=== PATIENT | male | born 1960 | race Caucasian/White ===

== ENCOUNTER 2019-04-07 09:08 | Emergency (ER) | payer SELFPAY ==
[2019-04-07] MEDS ORDERED: Ketorolac *IM* INJ* 60 MG/2 ML VIAL IM ONE (11:14)
[2019-04-07 11:44] VITALS: BP 120/77
--- NOTE | 2019-04-07 13:15 | ED ---
Back Pain - HPI Summary HPI Summary: This patient is a 58-year-old male who is currently residing at [facility] presenting to the ED with left lower back pain radiating into the buttocks and down the leg. Symptoms have been present 2 days. He states it is difficult to walk, however he remains ambulatory. He is rating the pain an 8/10. He denies any bladder or bowel dysfunction. Denies any pain currently over the spine. Denies any fevers, sweats, chills. - History of Current Complaint Chief Complaint: EDBackInjuryPain Stated Complaint: LOWER LT SIDE BACK PAIN PER PT Time Seen by Provider: 04/07/19 09:26 Hx Obtained From: Patient Onset/Duration: Sudden Onset Onset/Duration: Started Days Ago Timing: Constant Back Pain Location: Is Discrete @ - left lower back radiating to the L leg Severity Initially: Moderate Severity Currently: Moderate Pain Intensity: 6 Pain Scale Used: 0-10 Numeric Character: Aching Aggravating Symptom(s): Movement Alleviating Symptom(s): Rest, Position Associated Signs And Symptoms: Negative: Swelling, Redness, Bruising, Weakness, Numbness, Bladder Incontinence, Bowel Incontinence - Risk Factors AAA Risk Factors: Negative TAD Risk Factors: Negative Cauda Equina Risk Factors: Negative Epidural Abscess Risk Factors: Negative - Allergies/Home Medications Allergies/Adverse Reactions: Allergies Allergy/AdvReac Type Severity Reaction Status Date / Time No Known Allergies Allergy Verified 04/07/19 09:14 Home Medications: Home Medications Baclofen TAB* [Lioresal TAB*] 20 mg PO QID 04/07/19 [History Confirmed 04/07/19 ] Lisinopril 40 mg PO DAILY 04/07/19 [History Confirmed 04/07/19] hydrOXYzine HCL TAB* [Atarax 25 MG TAB*] 25 - 50 mg PO BID PRN 04/07/19 [ History Confirmed 04/07/19] PMH/Surg Hx/FS Hx/Imm Hx Previously Healthy: Yes - Immunization History Hx Pertussis Vaccination: No Immunizations Up to Date: Yes Infectious Disease History: No Infectious Disease History: Denies: Traveled Outside the [place] in Last 30 Days - Social History Occupation: Unemployed Lives: Alone - [facility] Alcohol Use: recovering Alcohol Amount: recovering Substance Use Type: Reports: Other Substance Use Comment - Amount & Last Used: hx cocaine Hx Tobacco Use: No Smoking Status (MU): Never Smoked Tobacco Review of Systems Negative: Fever, Chills, Fatigue, Skin Diaphoresis Negative: Chest Pain Negative: Shortness Of Breath, Cough Negative: Abdominal Pain, Vomiting, Diarrhea, Nausea Positive: no symptoms reported, see HPI Positive: Arthralgia - left lower back pain radiating to the buttocks. Negative : Myalgia Skin: Negative Neurological: Negative All Other Systems Reviewed And Are Negative: Yes Physical Exam Triage Information Reviewed: Yes Vital Signs On Initial Exam: Initial Vitals Temp Pulse Resp BP Pulse Ox 97.5 F 60 16 122/75 95 04/07/19 09:11 04/07/19 09:11 04/07/19 09:11 04/07/19 09:11 04/07/19 09:11 Vital Signs Reviewed: Yes Appearance: Positive: Well-Appearing, Well-Nourished Skin: Positive: Warm, Skin Color Reflects Adequate Perfusion Head/Face: Positive: Normal Head/Face Inspection Eyes: Positive: EOMI, JORY, Conjunctiva Clear Neck: Positive: Supple, No Lymphadenopathy Respiratory/Lung Sounds: Positive: Clear to Auscultation, Breath Sounds Present Cardiovascular: Positive: RRR, Pulses are Symmetrical in both Upper and Lower Extremities Musculoskeletal: Positive: Pain @ - left lower back pain Neurological: Positive: Speech Normal Psychiatric: Positive: Normal, Affect/Mood Appropriate AVPU Assessment: Alert Procedures - Sedation Patient Received Moderate/Deep Sedation with Procedure: No Diagnostics - Vital Signs Vital Signs Temp Pulse Resp BP Pulse Ox 04/07/19 11:43 97.9 F 52 17 120/77 97 04/07/19 09:11 97.5 F 60 16 122/75 95 - Laboratory Lab Statement: Any lab studies that have been ordered have been reviewed, and results considered in the medical decision making process. Back Pain Course/Dx - Course Course Of Treatment: Patient denies history of sciatic pain. He denies any pain directly over the spine or any trauma. Denies fevers, sweats, chills. No IV drug use recently. Denies any CP or SOB. Patient appears well, stating his pain is currently rated a 7/10, most specifically to the left lower back radiating into the buttocks into the left lower extremity. Denies any foot drop. Denies any weakness. No bladder or bowel dysfunction. No pain directly over the spine on palpation of the cervical, thoracic and lumbar spine. Patient is afebrile. Discussed treatment options with the patient. Patient states he would defer a head CT at this time. States he would never have surgery either way, just here for pain control. Pt is at [facility]. Given prednisone and toradol. Occurs moist heat to the area. Given information on sciatic pain and lumbar radiculopathy. Given low back exercises. He is diagnosed with sciatic pain. He will return if he develops any bladder or bowel dysfunction or any other symptoms. - Diagnoses Differential Diagnosis/HQI/PQRI: Positive: Strain, Sprain Provider Diagnoses: Lumbar radiculopathy, Sciatica Discharge ED - Sign-Out/Discharge Documenting (check all that apply): Patient Departure - Discharge Plan Condition: Stable Disposition: HOME Prescriptions: Ketorolac TAB * [Toradol TAB *] 10 mg PO Q6H #16 tab predniSONE TAB* [Deltasone TAB*] 50 mg PO DAILY #5 tab MDD 1 Patient Education Materials: Sciatica (ED), Lumbar Radiculopathy (ED), Lower Back Exercises (ED) Referrals: No Primary Care Phys,NOPCP [Primary Care Provider] - Additional Instructions: Please return to the ED if you develop any worsening or changing symptoms - specifically bladder symptoms Toradol four times daily x 4 days DO NOT take ibuprofen will taking this medication After taking the Toradol for 4 days, you may switch to ibuprofen and Tylenol Take Tylenol and ibuprofen intermittently for symptom control Prednisone once daily 5 days, take this in the morning for best relief Moist heat to the area as much as possible - Billing Disposition and Condition Condition: STABLE Disposition: Home - Attestation Statements Provider Attestation: I was available for consult. This patient was seen by the [facility]. The patient was not presented to, seen by, or examined by me. Florin Belcher MD
== END 2019-04-07 11:44 | disposition home or self-care (01) ==
LOC: MERGE 09:08 → ED 09:08
DX: M54.16 Radiculopathy, lumbar region (principal); M54.30 Sciatica, unspecified side; Z79.899 Other long term (current) drug therapy
CPT/HCPCS: 96372; 99282; J1885